=== PATIENT | female | born 1945 | race Caucasian/White ===

== ENCOUNTER 2016-08-17 12:55 | Day surgery (SDC) | payer MEDICARE, MEDICAID | END 2016-08-17 15:20 | disposition short-term general hospital (02) | LOC: SURGOP 12:55 | PROC: 3E0U3BZ Introduction of Anesthetic Agent into Joints, Percutaneous Approach (ICD-10-PCS; principal; 2016-08-17) | PROC: 3E0U33Z Introduction of Anti-inflammatory into Joints, Percutaneous Approach (ICD-10-PCS; 2016-08-17) | PROC: BR16ZZZ Fluoroscopy of Lumbar Facet Joint(s) (ICD-10-PCS; 2016-08-17) | DX: M54.5 Low back pain (principal); K21.9 Gastro-esophageal reflux disease without esophagitis; E78.00 Pure hypercholesterolemia, unspecified; I10 Essential (primary) hypertension; G43.909 Migraine, unspecified, not intractable, without status migrainosus; M19.90 Unspecified osteoarthritis, unspecified site; G47.30 Sleep apnea, unspecified; Z88.6 Allergy status to analgesic agent; Z88.8 Allergy status to other drugs, medicaments and biological substances; Z79.891 Long term (current) use of opiate analgesic; Z79.899 Other long term (current) drug therapy; Z90.49 Acquired absence of other specified parts of digestive tract; Z90.89 Acquired absence of other organs; Z98.890 Other specified postprocedural states; Z87.891 Personal history of nicotine dependence; Z82.3 Family history of stroke; Z83.3 Family history of diabetes mellitus | CPT/HCPCS: J1040 ==

== ENCOUNTER 2016-11-14 16:23 | Observation (INO) | payer MEDICARE, MEDICAID ==
[~2016-11-14] VITALS: Ht 157.5 cm; Wt 122.9 kg
[2016-11-14] MEDS ORDERED: LIORESAL10 MG PO (17:05)
[2016-11-14] MEDS ORDERED: PERCOCET 325-51 TAB PO ×2 (17:06→17:07)
[2016-11-14] MEDS ORDERED: CYMBALTA60 MG PO (17:06)
[2016-11-14] MEDS ORDERED: LASIX40 MG PO (17:07)
[2016-11-14] MEDS ORDERED: ZAROXOLYN2.5 MG PO (17:08)
[2016-11-14] MEDS ORDERED: PRILOSEC20 MG PO (17:08)
[2016-11-14] MEDS ORDERED: CALCIUM 600 +1 EA15 PO (17:12)
[2016-11-14] MEDS ORDERED: MAGNESIUM250 M1 PO (17:13)
[2016-11-14] MEDS ORDERED: MELATONIN10 MG PO (17:14)
[2016-11-14] MEDS ORDERED: PATADAY2.5 ML EYEBOTH (17:15)
[2016-11-14] MEDS ORDERED: SENOKOT8.6 MG PO (17:16)
[2016-11-14] MEDS ORDERED: PRAVACHOL40 MG PO (17:17)
[2016-11-14] MEDS ORDERED: HALFPRIN81 MG PO (17:17)
[2016-11-14] MEDS ORDERED: NAPROSYN500 MG PO (17:18)
[2016-11-14] MEDS ORDERED: PRINIVIL20 MG PO (17:18)
[2016-11-14] MEDS ORDERED: POTASSIUM40 MEQ/15 PO (17:18)
[2016-11-14] MEDS ORDERED: LYRICA75 MG PO (17:19)
[2016-11-14] MEDS ORDERED: CLOBETASOL PROP30 GM TOP (17:20)
[2016-11-14] MEDS ORDERED: LOTRIMIN AF28.35 GM TOP (17:21)
[2016-11-14] MEDS ORDERED: SYNTHROID50 MCG PO (17:22)
[2016-11-16] MEDS ORDERED: ASPIRIN81 MG PO (08:39)
[2016-11-16] MEDS ORDERED: PERCOCET 325-51 TAB PO (08:41)
[2016-11-16] MEDS ORDERED: ALOE VESTA226 GM TOP (09:05)
== END 2016-11-16 09:27 ==
LOC: ER 16:23 → OBS 18:50 → IP 18:50 → ER 18:50 → IP 11-16 09:27
PROVIDERS: ADMIT Family Medicine
DX: R53.1 Weakness (principal); M54.5 Low back pain; M25.562 Pain in left knee; M25.561 Pain in right knee; R26.9 Unspecified abnormalities of gait and mobility; K21.9 Gastro-esophageal reflux disease without esophagitis; M79.7 Fibromyalgia; E78.5 Hyperlipidemia, unspecified; I10 Essential (primary) hypertension; M19.90 Unspecified osteoarthritis, unspecified site; G47.30 Sleep apnea, unspecified; G62.9 Polyneuropathy, unspecified; R25.1 Tremor, unspecified; Z90.49 Acquired absence of other specified parts of digestive tract; Z90.89 Acquired absence of other organs; Z90.710 Acquired absence of both cervix and uterus; Z79.891 Long term (current) use of opiate analgesic; Z79.82 Long term (current) use of aspirin; Z79.899 Other long term (current) drug therapy; Z87.891 Personal history of nicotine dependence
CPT/HCPCS: 73502-LT; G0378; J1650